=== PATIENT | male | born 1990 | race Caucasian/White ===

== ENCOUNTER 2017-01-09 21:21 | Outpatient (CLI) | payer MEDICAID | END 2017-01-09 21:22 | disposition critical access hospital (66) | LOC: EMS 21:21 | PROVIDERS: ATTEND Surgery | DX: S61.432A Puncture wound without foreign body of left hand, initial encounter (principal); W26.0XXA Contact with knife, initial encounter; Y92.009 Unspecified place in unspecified non-institutional (private) residence as the place of occurrence of the external cause | CPT/HCPCS: A0425; A0429 ==

== ENCOUNTER 2017-01-09 21:39 | Emergency (ER) | payer MEDICAID ==
[2017-01-09] MEDS ORDERED: LIDOCAINE 2% 10 ML MDV ONE (22:20)
--- NOTE | 2017-01-09 22:33 | ED Physician Documentation ---
PD HPI UPPER EXT INJURY - Stated complaint Stated Complaint: HAND LACERATION - Chief complaint Chief Complaint: Laceration - History obtained from History obtained from: Patient, EMS - History of Present Illness Location: Left, Hand Type of injury: Laceration Where injury occurred: Home Timing - onset: How many hours ago (1) Timing - duration: Hours (1) Timing - details: Abrupt onset Pain level max: 4 Pain level now: 3 Improved by: Rest Worsened by: Palpating Associated symptoms: No: Weakness, Numbness, Tingling, Swelling Contributing factors: No: Anticoagulated Recently seen: Not recently seen - Additonal information Additional information: pt is right handed. Lacerated near base of L thumb trying to cut a ziptie off with a knife. Review of Systems Neurologic: denies: Focal weakness, Numbness PD PAST MEDICAL HISTORY - Past Medical History Past Medical History: No - Past Surgical History Past Surgical History: No - Present Medications Home Medications: Ambulatory Orders Medication Instructions Recorded Confirmed No Known Home Medications [No 01/09/17 01/09/17 Known Home Medications] - Allergies Allergies/Adverse Reactions: Allergies Allergy/AdvReac Type Severity Reaction Status Date / Time No Known Drug Allergies Allergy Verified 01/09/17 22:37 - Social History Does the pt smoke?: Yes Smoking Status: Current every day smoker Does the pt drink ETOH?: No Does the pt have substance abuse?: No - Immunizations Immunizations are current?: Yes PD ED PE NORMAL - Vitals Vital signs reviewed: Yes - General General: Alert and oriented X 3 - HEENT HEENT: Moist mucous membranes - Neck Neck: Supple, no meningeal sign - Derm Derm: Warm and dry - Neuro Neuro: Alert and oriented X 3 PD ED PE EXPANDED - Extremities RUDDY UE/Hands Visual: 1 - laceration (2cm, linear, subcutaneous. NVI. no tendon injury. no FB) Results - Vitals Vitals: Vital Signs - 24 hr 01/09/17 01/09/17 21:41 22:39 Temperature 36.3 C L Heart Rate 72 65 Respiratory 16 16 Rate Blood Pressure 138/74 H 129/80 O2 Saturation 99 100 Oxygen O2 Source Room air Procedures - Laceration (location) L hand Length in cm: 2 Wound type: Linear, Into subcut fat, Clean Neurovascular status: Sensory intact, Motor intact, Vascular intact Tendon involvement: Tendon intact. No: Tendon Injury Anesthesia: Lidocaine 2% Wound Preparation: Irrigated copiously NS (250ml NS), Wound explored, To the base Skin layer closure: Nylon, Size #-0 - enter number (4), Sutures - enter # (3) Other: Patient tolerated well, No complications, Neurovascular intact, Dressing applied, Tetanus booster given (tdap) Complexity: Simple PD MEDICAL DECISION MAKING - ED course Complexity details: considered differential, d/w patient ED course: Patient is a 26-year-old male who presents to the emergency department with left hand laceration. NVI. This was repaired. Tolerated well. No foreign bodies. Tdap given. Warnings of infection and instructions on wound care given at bedside. Also counseled on how to minimize scarring. Patient counseled regarding signs and symptoms for which I believe and urgent re- evaluation would be necessary. Patient with good understanding of and agreement to plan and is comfortable going home at this time This document was made in part using voice recognition software. While efforts are made to proofread this document, sound alike and grammatical errors may occur. Departure - Departure Disposition: 01 Home, Self Care Clinical Impression: Laceration Condition: Good Instructions: ED Laceration Hand Follow-Up: your,doctor in 10 days for suture removal [Other] Comments: Return if you worsen, including redness, swelling or drainage from the wound. The stitches should be removed in 10 days. Keep the wound clean. Discharge Date/Time: 01/09/17 22:41
[2017-01-09] MEDS ORDERED: TETANUS/DIPHTHERIA/PERTUSSIS 0.5 ML SYRINGE IM ONE (22:34)
[2017-01-09] MEDS ORDERED: TETANUS/DIPHTHERIA TOXOID 0.5 ML SYRINGE IM ONE (22:34)
[2017-01-09 22:39] VITALS: BP 129/80
== END 2017-01-09 22:41 | disposition home or self-care (01) ==
LOC: EDUNIT# → ED 21:39
DX: S61.412A Laceration without foreign body of left hand, initial encounter (principal); W26.0XXA Contact with knife, initial encounter; Y92.019 Unspecified place in single-family (private) house as the place of occurrence of the external cause; F17.200 Nicotine dependence, unspecified, uncomplicated
CPT/HCPCS: 12001; 25075; 90471; 99282; 99283

== ENCOUNTER 2018-09-26 08:58 | Emergency (ER) | payer MEDICAID ==
[2018-09-26 09:05] VITALS: BP 143/90
== END 2018-09-26 11:02 | disposition left against medical advice (07) ==
LOC: ED 08:58
DX: H92.02 Otalgia, left ear (principal); Z53.21 Procedure and treatment not carried out due to patient leaving prior to being seen by health care provider

== ENCOUNTER 2019-03-03 14:33 | Day surgery (SDC) | payer MEDICAID ==
[2019-03-03] MEDS ORDERED: ONDANSETRON 4 MG/2 ML VIAL IVP STA (14:54)
[2019-03-03] MEDS ORDERED: MORPHINE 2 MG/ML CARPUJECT IVP STA (14:54)
--- NOTE | 2019-03-03 14:56 | ED Physician Documentation ---
PD HPI ABD PAIN - Stated complaint Stated Complaint: ABD PX - Chief complaint Chief Complaint: Abd Pain - History obtained from History obtained from: Patient - History of Present Illness Timing - onset: Yesterday (This young man who is unfortunately homeless and has a history of methamphetamine use (yesterday) who presents with central abdominal cramping that started yesterday morning early associated with nausea but no vomiting. The pain kind of waxes and wanes but never really goes away. Its associated with normal bowel movements but did have increased pain after a bowel movement today.) Review of Systems Ten Systems: 10 systems reviewed and negative Constitutional: denies: Fever, Chills Cardiac: denies: Chest pain / pressure, Palpitations Respiratory: denies: Dyspnea, Cough GI: reports: Abdominal Pain, Nausea. denies: Vomiting, Constipation, Diarrhea PD PAST MEDICAL HISTORY - Past Surgical History Past Surgical History: No - Present Medications Home Medications: Ambulatory Orders Medication Instructions Recorded Confirmed No Known Home Medications 01/09/17 03/03/19 - Allergies Allergies/Adverse Reactions: Allergies Allergy/AdvReac Type Severity Reaction Status Date / Time No Known Drug Allergies Allergy Verified 03/03/19 14:39 - Social History Does the pt smoke?: Yes Smoking Status: Current every day smoker Does the pt drink ETOH?: No Does the pt have substance abuse?: No - Immunizations Immunizations are current?: Yes PD ED PE NORMAL - Vitals Vital signs reviewed: Yes - General General: Alert and oriented X 3, Other (He appears uncomfortable) - HEENT HEENT: PERRL, EOMI - Neck Neck: Supple, no meningeal sign, No bony TTP - Cardiac Cardiac: RRR, No murmur - Respiratory Respiratory: No respiratory distress - Abdomen Abdomen: Normal bowel sounds, Soft, Other (Soft bowel belly with normal bowel tones, mild lower abdominal tenderness that does not seem to lateralize. No guarding or rebound.) - Back Back: No CVA TTP, No spinal TTP - Derm Derm: Normal color, Warm and dry - Extremities Extremities: No edema, No calf tenderness / cord - Neuro Neuro: Alert and oriented X 3, Normal speech Results - Vitals Vitals: Vital Signs - 24 hr 03/03/19 14:36 Temperature 36.8 C Heart Rate 101 H Respiratory 22 Rate Blood Pressure 148/108 H O2 Saturation 100 Oxygen O2 Source Room air - Labs Labs: Laboratory Tests 03/03/19 03/03/19 03/03/19 14:55 15:05 15:05 WBC 10.8 RBC 5.35 Hgb 16.4 Hct 47.7 MCV 89.2 MCH 30.7 MCHC 34.4 RDW 12.5 Plt Count 287 MPV 9.0 Neut # (Auto) 7.1 H Lymph # (Auto) 2.8 [place] # (Auto) 0.6 Eos # (Auto) 0.1 Baso # (Auto) 0.0 Absolute Nucleated RBC 0.00 Nucleated RBC % 0.0 Sodium 137 Potassium 3.4 L Chloride 99 L Carbon Dioxide 25 Anion Gap 13.0 BUN 14 Creatinine 1.0 Estimated GFR (MDRD) 90 Glucose 116 H Calcium 9.5 Total Bilirubin 1.0 AST 18 ALT 16 Alkaline Phosphatase 66 Total Protein 8.1 Albumin 4.6 Globulin 3.5 Albumin/Globulin Ratio 1.3 Lipase 29 Urine Color LT. YELLOW Urine Clarity CLOUDY Urine pH 8.5 H Ur Specific [place] 1.015 Urine Protein NEGATIVE Urine Glucose (UA) NEGATIVE Urine Ketones NEGATIVE Urine Occult Blood NEGATIVE Urine Nitrite NEGATIVE Urine Bilirubin NEGATIVE Urine Urobilinogen 0.2 (NORMAL) Ur Leukocyte Esterase NEGATIVE Urine RBC None Seen Urine WBC 0-3 Ur Squamous Epith Cells NONE SEEN Amorphous Sediment Marked Urine Bacteria None Seen Ur Microscopic Review INDICATED Urine Culture Comments NOT INDICATED PD MEDICAL DECISION MAKING - ED course ED course: This is a young man with lower abdominal pain for a day, on repeat examination after morphine pain was lateralizing more to the right lower quadrant. The on- call surgeon, Dr. Drake was consulted at 3:55 PM and will see the patient. Departure - Departure Disposition: ED Transfer to [facility] Clinical Impression: Acute abdomen Condition: Stable
[2019-03-03 15:07] LABS: BILIRUBIN,URINE NEGATIVE (NEGATIVE); GLUCOSE, URINE (UA) NEGATIVE (NEGATIVE); KETONES,URINE (UA) NEGATIVE (NEGATIVE); LEUKOCYTE ESTERASE, URINE NEGATIVE (NEGATIVE); NITRITE,URINE NEGATIVE (NEGATIVE); OCCULT BLOOD,URINE NEGATIVE (NEGATIVE); PH,URINE 8.5 PH (5.0-7.5); PROTEIN,URINE NEGATIVE (NEGATIVE); UROBILINOGEN,URINE 0.2 (NORMAL) E.U./dL (NORMAL)
[2019-03-03 15:11] LABS: BASOPHILS % (AUTO) 0.3 %; EOSINOPHILS # (AUTO) 0.1 10^3/uL (0.0-0.7); EOSINOPHILS % (AUTO) 1.3 %; HGB - HEMOGLOBIN 16.4 g/dL (14.0-18.0); LYMPHOCYTES # (AUTO) 2.8 10^3/uL (1.5-3.5); LYMPHOCYTES % (AUTO) 26.3 %; MEAN CORPUSCULAR HEMOGLOBIN 30.7 pg (27.0-31.0); MEAN CORPUSCULAR HGB CONC 34.4 g/dL (32.0-36.0); MEAN CORPUSCULAR VOLUME 89.2 fL (80.0-94.0); MONOCYTES # (AUTO) 0.6 10^3/uL (0.0-1.0); MONOCYTES % (AUTO) 5.3 %; NEUTROPHILS # (AUTO) 7.1 10^3/uL (1.5-6.6); NEUTROPHILS % (AUTO) 66.3 %; PLT - PLATELET COUNT 287 10^3/uL (130-450); RED BLOOD COUNT 5.35 10^6/uL (4.70-6.10); RED CELL DISTRIBUTION WIDTH 12.5 % (12.0-15.0); WHITE BLOOD COUNT 10.8 x10^3/uL (4.8-10.8)
[2019-03-03 15:12] LABS: CLARITY,URINE CLOUDY (CLEAR)
[2019-03-03 15:23] LABS: AMORPHOUS SEDIMENT,UR Marked /LPF; BACTERIA,URINE None Seen /HPF (None Seen); RBC,URINE None Seen /HPF (0-5); SQUAMOUS EPITHELIAL CELL,UR NONE SEEN (<= Few)
[2019-03-03 15:26] LABS: ALBUMIN 4.6 g/dL (3.2-5.5); ALBUMIN/GLOBULIN RATIO 1.3 (1.0-2.2); CALCIUM 9.5 mg/dL (8.5-10.3); TOTAL PROTEIN 8.1 g/dL (6.7-8.2)
[2019-03-03] MEDS ORDERED: PIPERACILLIN/TAZOBACTAM 3.375 GM in SODIUM CHLORIDE 0.9% MINIBAG 100 ML IV STA (15:55)
[2019-03-03] MEDS ORDERED: fentaNYL 100 MCG/2 ML VIAL IVP ONE (16:11)
[2019-03-03] MEDS ORDERED: PROPOFOL 200 MG/20 ML VIAL IVP ONE (16:11)
[2019-03-03] MEDS ORDERED: DEXAMETHASONE 4 MG/ML VIAL IVP ONE (16:11)
[2019-03-03] MEDS ORDERED: ROCURONIUM 50 MG/5 ML VIAL IVP ONE (16:11)
[2019-03-03] MEDS ORDERED: MIDAZOLAM 2 MG/2 ML VIAL IVP ONE (16:11)
[2019-03-03] MEDS ORDERED: GLYCOPYRROLATE 1 MG/5 ML VIAL IVP ONE (16:11)
[2019-03-03] MEDS ORDERED: NEOSTIGMINE 1 MG/1 ML 10 ML MDV IVP ONE (16:11)
[2019-03-03] MEDS ORDERED: KETOROLAC 30 MG/ML VIAL IVP STA (16:15)
--- NOTE | 2019-03-03 16:21 | ANESTHESIA ---
Pre-Anesthesia VS, & Labs - Diagnosis Appendicitis - Procedure Lap appy Vital Signs: Temp Pulse Resp BP Pulse Ox 36.8 C 101 H 22 148/108 H 100 03/03/19 14:36 03/03/19 14:36 03/03/19 14:36 03/03/19 14:36 03/03/19 14:36 Height 6 ft 1 in Weight (kg) 77.111 kg Body Mass Index 22.4 - NPO Other (Crackers at 1430) - Lab Results Current Lab Results: Laboratory Tests 03/03/19 15:05: Sodium 137, Potassium 3.4 L, Chloride 99 L, Carbon Dioxide 25, Anion Gap 13.0, BUN 14, Creatinine 1.0, Estimated GFR (MDRD) 90, Glucose 116 H, Calcium 9.5, Total Bilirubin 1.0, AST 18, ALT 16, Alkaline Phosphatase 66, Total Protein 8.1, Albumin 4.6, Globulin 3.5, Albumin/Globulin Ratio 1.3, Lipase 29 03/03/19 15:05: WBC 10.8, RBC 5.35, Hgb 16.4, Hct 47.7, MCV 89.2, MCH 30.7, MCHC 34.4, RDW 12.5, Plt Count 287, MPV 9.0, Neut # (Auto) 7.1 H, Lymph # (Auto) 2.8, [place] # (Auto) 0.6, Eos # (Auto) 0.1, Baso # (Auto) 0.0, Absolute Nucleated RBC 0.00, Nucleated RBC % 0.0 Fish Bones: 03/03/19 15:05 03/03/19 15:05 Home Medications and Allergies Active Medications Piperacillin Sod/Tazobactam (Sod 3.375 gm/ Sodium Chloride) 100 mls @ 200 mls/hr IV ONCE STA Stop: 03/03/19 16:24 Last Admin: 03/03/19 16:14 Dose: 200 mls/hr No Known Home Medications 01/09/17 Allergies/Adverse Reactions: Allergies Allergy/AdvReac Type Severity Reaction Status Date / Time No Known Drug Allergies Allergy Verified 03/03/19 14:39 Anes History & Medical History - Anesthetic History Anesthesia Complications: reports: No previous complications Family history of Anesthesia Complications: Denies Family history of Malignant Hyperthermia: Denies - Medical History Cardiovascular: reports: None Pulmonary: reports: None Gastrointestinal: reports: GERD Urinary: reports: None Neuro: reports: None Musculoskeletal: reports: None Endocrine/Autoimmune: reports: None Blood Disorders: reports: None Skin: reports: None Smoking Status: Current every day smoker Psychosocial: reports: Amphetamine, Inhalant - Surgical History Eyes Ears Nose Throat (EENT): Myringotomy (tubes), Tonsil/Adenoidectomy Exam General: Alert, Oriented x3 Dental: WNL Mouth Opening: Greater than 4 Fingerbreadths Neck Mobility: Normal Mallampati classification: I Thyromental Distance: greater than 6 cm Respiratory: Lungs clear Cardiovascular: Regular rate Neurological: Normal speech Mental/Cognitive Status: Alert/Oriented X3, Normal for patient Cognitive Status: Within normal limits Plan Anesthesia Type: General Consent for Procedure(s) Verified and Reviewed: Yes Code Status: Attempt Resuscitation ASA classification: 2-Mild systemic disease Is this case an emergency?: Yes
--- NOTE | 2019-03-03 16:26 | CONSULTATION NOTE ---
Referring Provider Name of Referring Provider:: Dr. Bandar Dobson Consult Date: 03/03/19 Chief Complaint - Chief Complaint Chief Complaint: Right lower quadrant pain consistent with acute appendicitis History of Present Illness - Admitted From Admitted From:: Not admittedoutpatient - History Obtained From Records Reviewed: Yes History obtained from: Patient and Dr. Bandar Dobson Exam Limitations: None - History of Present Illness HPI Comment/Other: Dr. Banadr Dobson insulin see this pleasant but unfortunate 29-year-old male for the possibility of acute appendicitis. The patient states that the pain started yesterday in the morning and was associated with some nausea and over the interim the pain is gotten worse and localized to the right lower quadrant. Our CT scanner is down for 24 hours and is unavailable for studies. The pain is worsened by motion. When I speak to him the patient states that the pain medication has helped in his mid location of the pain a little bit more indistinct. Of note, the patient is homeless and the last time he is methamphetamines was approximately 24 hours ago. History - Past Medical History Cardiovascular: reports: None Respiratory: reports: None Meds/Allgy - Home Medications Home Medications: Ambulatory Orders Medication Instructions Recorded Confirmed No Known Home Medications 01/09/17 03/03/19 - Allergies Allergies/Adverse Reactions: Allergies Allergy/AdvReac Type Severity Reaction Status Date / Time No Known Drug Allergies Allergy Verified 03/03/19 14:39 Review of Systems - Constitutional Constitutional: reports: Malaise. denies: Fatigue - Eyes Eyes: denies: Pain - Ears, Nose & Throat Ears, Nose & Throat: denies: Ear pain - Cardiovascular Cariovascular: denies: Irregular heart rate - Respiratory Respiratory: denies: Cough - Gastrointestinal Gastrointestinal: reports: Abdominal pain, Vomiting - Genitourinary Genitourinary: denies: Dysuria - Neurological Neurological: denies: General weakness, Focal weakness Exam - Vital Signs Reviewed Vital Signs: Yes Vital Signs: Vital Signs x48h Temp Pulse Resp BP Pulse Ox 03/03/19 16:15 68 19 146/102 H 98 03/03/19 14:36 36.8 C 101 H 22 148/108 H 100 - Physical Exam General Appearance: positive: Lethargic (When I entered room 9 at [facility]'s emergency department his girlfriend was curled up on the gurney with him. She allowed me to examine him. His answers are little bit blunt. He was quick to remind me that he had received some pain medication.) Eyes Bilateral: positive: No lid inflammation, No scleral icterus, Other (Conjunctive injected) ENT: positive: Dry mucous membranes Neck: positive: Trachea midline Respiratory: positive: Chest non-tender, No respiratory distress, Breath sounds nml Cardiovascular: positive: Regular rate & rhythm Abdomen: positive: Tenderness (In the right lower quadrant around McBurney's point but not exactly at McBurney's point. Positive bowel sounds) Skin: positive: Color nml Extremities: positive: Non-tender, Nml appearance Neurologic/Psychiatric: positive: Oriented x3, Motor nml, Sensation nml, Depressed mood/affect Conclusion/Plan - Diagnosis Diagnosis: Acute appendicitis - Plan Plan: Laparoscopic appendectomy, possible open appendectomy. The indications, procedure, alternatives including no surgery, possible risks including infection (deep or superficial), bleeding requiring transfusion (with all of its risks), and were fully explained to the patient and all questions answered. I also explained the pathophysiology. I explained that following the surgery I did not want him lifting anything over 15 pounds for 6 weeks to allow for optimal healing and to decrease the likelihood that a hernia would occur. All questions were fully answered. Verbal and written consent was obtained. The patient, in preparation for surgery will be nothing by mouth, and receive 3.375 g of Zosyn with induction. I asked him to contact me with any surgical questions and his concerns and he stated that he would. I asked him to let me know if there is any way we can make his stay at [facility] more comfortable and he stated that he would let me know. The plan is to do this operation as an outpatient procedure and to discharge him home following the procedure. 45 minutes of [id number] time spent with the patient, over 80% in discussion and coordination of his care Gerald disclaimer: This document was created in part using voice recognition technology. Because of the inherent limitations of the system ([employer]'s [employer] Dictate user manual states that the licensee understands that speech recognition is a statistical process and that recognition errors are inherent in the process), occasional same sounding word substitutions and grammatical errors do occur and persist despite proofreading. Please read this document for context. - Lab Results Lab results reviewed: Yes Fish Bones: 03/03/19 15:05 03/03/19 15:05
[2019-03-03] MEDS ORDERED: BUPIVACAINE 0.5% PF 10 ML VIAL ONE ×2 (16:49→19:08)
[2019-03-03] MEDS ORDERED: LACTATED RINGERS 1,000 ML IV ONE (19:15)
[2019-03-03] MEDS ORDERED: HYDROcod/ACETAM 5/325 MG TABLET PO PRN (20:18)
[2019-03-03] MEDS ORDERED: HYDROmorphone 0.5 MG/0.5 ML SYRINGE IVP PRN (20:18)
[2019-03-03] MEDS ORDERED: ONDANSETRON 4 MG/2 ML VIAL IVP PRN (20:18)
--- NOTE | 2019-03-03 20:27 | OPERATIVE REPORT ---
Operative Report - General Procedure Date: 03/03/19 Planned Procedure: Laparoscopic appendectomy, possible open appendectomy Pre-Op Diagnosis: Acute appendicitis Procedure Performed: Laparoscopic appendectomy and umbilical herniorrhaphy Post Op Diagnosis: Acute nonperforated appendicitis and umbilical hernia - Procedure Note Primary Surgeon: Rm Drake MD Anesthesia Provider: Mendoza Bravo CRNA Anesthesia Technique: General ET tube, Local (30 mL of half percent Marcaine) IV Fluids (mL): 300 Estimated Blood Loss (mL): 5 Drain/Tube Type: Other (None.) Complications: None. - Other Other Information/Narrative: OPERATIVE DESCRIPTION/REPORT: After verbal and written informed consent was obtained detailing the risks of infection, bleeding requiring transfusion with its risks, and , and after I met with the patient confirming the surgery and the site of the surgery, the patient was brought to the operative suite and placed supine on the operating table. Great care was taken to avoid pressure points to prevent pressure necrosis or nerve injury. Monitoring devices were applied along with TEDs and pneumatic compressive stockings (to prevent DVT). The patient received p reoperative antibiotics for surgical prophylaxis. Consuelo Bravo CRNA sedated and anesthetized the patient for the entire procedure. The patient was prepped and draped in the usual sterile manner. With the patient draped my initials were clearly visible. A "time in" then confirmed that the patient was identified with 3 identifiers (name, date and medical record number), the history and physical was in the chart, the signed consent confirming the procedure was in the chart, the patient was in the correct position, the aforementioned prophylactic measures were in place or given, we had the correct personnel and equipment to complete the procedure and that anesthesia, surgery and nursing were given an opportunity to express any concerns. With the agreement of everyone in the room, we proceeded with the operation. A 2 cm incision umbilical incition was made and dissection down to the fascia was completed in a blunt and sharp manner. It was clear that the patient had an umbilical hernia in this hernia was used to gain entry into the abdomen without incident. A 12 mm blunt tipped balloon tipped Conchita port was placed into the abdomen and the balloon inflated to keep it in place. The pneumoperitoneum was then established using carbon dioxide insufflation to a steady state pressure of 15 mmHg. Two additional 5 mm ports were placed in the midline above and below the umbilicus. The patient was then rotated slightly to their left and slightly head down (Trendelenberg). A small adhesion was photographed and cut. The appendix was clearly identified and noted to be mildly thickened and clearly consistent with acute appendicitis. The appendix was double backed onto itself and the adhesions were taken down using sequential application of the LigaSure device. The end of the appendix was grasped with a Prestige grasper and lifted anteriorly thus revealing the appendiceal mesentery. The mesentery was taken using sequential application of the Ligasure until the base of the appendix was visualized without any adherent tissue. The base of the appendix was then stapled and transected using a laparoscopic vascular stapler. Visualization of the staple line revealed absolutely no bleeding or leak of bowel contents. Photographs were taken. The appendix was then place into an endopouch for the remainder of the case. The patient was then rotated to lie flat. The fascia and skin were then injected with the 30 cc of % marcaine for pain control. The insufflation was released and the ports removed. With the removal of the umbilical port the Endopouch containing the appendix was also removed. The fascial defect was then approximated using 2 0-Vicryl suture in a simple interrupted manner taking care to bury the knots. In so doing the umbilical hernia was repaired. The skin incisions were approximated with 4-0 Monocryl in a subcuticular fashion. The surgical prep was removed, the skin was prepped with benzoin and steristrips were applied. A dressing was applied. At this point a time out was performed that confirmed that all the counts were correct, the procedure that was performed, the blood loss, the urine output, the IV fluids administered, and the patients condition. Having tolerated the procedure well, the patient was subsequently extubated and taken to recovery room in good and stable condition. [employer] disclaimer: This document was created in part using voice recognition technology. Because of the inherent limitations of the system ([employer]'s [employer] Dictate user manual states that the licensee understands that speech recognition is a statistical process and that recognition errors are inherent in the process), occasional same sounding word substitutions and grammatical errors do occur and persist despite proofreading. Please read this document for context.
[2019-03-03] MEDS ORDERED: HYDROcod/ACET 5/325 Prepack 4 PO STA (20:46)
[2019-03-04 00:29] VITALS: BP 140/91
== END 2019-03-04 00:32 | disposition home or self-care (01) ==
LOC: ED 14:33 → SDS 16:10 → MS2 20:45 → SDS 03-04 00:32
PROVIDERS: ATTEND Surgery
PROC: 0DTJ4ZZ Resection of Appendix, Percutaneous Endoscopic Approach (ICD-10-PCS; principal; 2019-03-03 17:00)
DX: K35.80 Unspecified acute appendicitis (principal); K42.9 Umbilical hernia without obstruction or gangrene; F17.200 Nicotine dependence, unspecified, uncomplicated; Z59.0 Homelessness; Z87.898 Personal history of other specified conditions
CPT/HCPCS: 36415; 44970; 80053; 81001; 83690; 85025; 96374; 96375; 99284; 99285; J7120; 81003; 87086; 96365

== ENCOUNTER 2019-04-10 10:17 | Outpatient (CLI) | payer MEDICAID | END 2019-04-10 10:18 | disposition critical access hospital (66) | LOC: EMS 10:17 | PROVIDERS: ATTEND Surgery | DX: T20.19XA Burn of first degree of multiple sites of head, face, and neck, initial encounter (principal); X04.XXXA Exposure to ignition of highly flammable material, initial encounter | CPT/HCPCS: A0425; A0427; A0999 ==

== ENCOUNTER 2019-04-10 10:35 | Emergency (ER) | payer MEDICAID ==
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
[2019-04-10] MEDS ORDERED: MORPHINE 10 MG/ML VIAL IVP STA (11:42)
[2019-04-10] MEDS ORDERED: KETOROLAC 30 MG/ML VIAL IVP STA (11:42)
[2019-04-10] MEDS ORDERED: BACITRACIN ZINC OINT 14 GM TOP STA (11:42)
[2019-04-10] MEDS ORDERED: LIDOCAINE JELLY 2% 5 ML TUBE TOP STA (11:42)
[2019-04-10 12:16] VITALS: BP 136/98
== END 2019-04-10 12:31 | disposition home or self-care (01) ==
LOC: EDUNIT# → ED 10:35
DX: T20.16XA Burn of first degree of forehead and cheek, initial encounter (principal); T20.13XA Burn of first degree of chin, initial encounter; T20.17XA Burn of first degree of neck, initial encounter; T31.0 Burns involving less than 10% of body surface; X04.XXXA Exposure to ignition of highly flammable material, initial encounter; Y93.89 Activity, other specified; F17.200 Nicotine dependence, unspecified, uncomplicated
CPT/HCPCS: 96374; 96375; 99283; 99284; A9270; J3490